=== PATIENT | male | born 1995 | race Caucasian/White ===

== ENCOUNTER 2016-11-28 23:45 | Emergency (ER) | payer OTHER ==
[2016-11-29 00:59] LABS: A/G RATIO 0.8 (0.7-1.9); ALBUMIN 3.7 G/DL (3.5-5.0); ALKALINE PHOSPHATASE 83 U/L (45-117); BUN (BLOOD UREA NITROGEN) 6 MG/DL (6-23); CALCIUM, SERUM 9.3 MG/DL (8.5-10.4); CHLORIDE, SERUM 103 MMOL/L (96-112); CO2 (CARBON DIOXIDE) 23 MMOL/L (24-34); CREATININE 0.97 MG/DL (0.70-1.30); GFR AFRICAN AMERICAN 130 ML/MIN (>=60); GFR NON AFRICAN AMERICAN 112 ML/MIN (>=60); GLOBULIN 4.5 G/DL (2.5-4.1); GLUCOSE, SERUM 116 MG/DL (60-99); SGPT(ALT) 37 U/L (5-65); SODIUM, SERUM 137 MMOL/L (135-148); TOTAL BILIRUBIN 0.6 MG/DL (0-1.2); TOTAL PROTEIN 8.2 G/DL (6.0-8.5)
[2016-11-29 01:00] LABS: POTASSIUM, SERUM 4.7 MMOL/L (3.5-5.3); SGOT(AST) 29 U/L (5-40)
[2016-11-29 01:04] LABS: BASOPHILS 0.1 %; BASOPHILS ABSOLUTE 0.02 10/3/uL (0.0-0.16); EOSINOPHILS 1.4 %; EOSINOPHILS ABSOLUTE 0.21 10/3/uL (0.0-0.53); ER CBC TAT 0 Hrs 15 Mins; HEMATOCRIT 38.5 % (40.0-51.0); HEMOGLOBIN 12.8 g/dL (13.6-17.8); IMMATURE GRANULOCYTES 0.2 %; IMMATURE GRANULOCYTES ABSOLUTE 0.03 10/3/uL (0.0-0.11); LYMPHOCYTES 5.2 %; LYMPHOCYTES ABSOLUTE 0.76 10/3/uL (0.67-4.30); MEAN CORPUS HGB CONC 33.2 g/dL (32.0-36.0); MEAN CORPUSCULAR HEMOGLOB 30.5 pg (26.0-34.0); MEAN CORPUSCULAR VOLUME 91.9 fL (80-100); MEAN PLATELET VOLUME 8.7 fL (9.2-13.0); MONOCYTES ABSOLUTE 0.59 10/3/uL (0.21-1.20); NEUTROPHILS 89.1 %; NEUTROPHILS ABSOLUTE 13.11 10/3/uL (2.02-8.40); PLATELET COUNT 393 10/3/uL (150-400); RBC DISTRIBUTION WIDTH 14.1 % (12.0-16.0); RED CELL COUNT 4.19 10/6/uL (4.7-6.1); WHITE BLOOD CELLS 14.7 10/3/uL (4.5-10.5)
[2016-11-29 01:05] LABS: MANUAL DIFF NO %
[2016-11-29 01:06] LABS: INTERNATIONAL NORMAL RATI 1.1 UNITS (-); PROTIME (NOT ORD) 14.5 SEC (12.0-14.5)
[2016-11-29 01:07] LABS: PARTIAL THROMBO TIME 32.5 SEC (22.5-37.2)
[2016-11-29 01:28] LABS: BAND NEUTROPHILS 1 %; EOSINOPHILS 2 %; EOSINOPHILS ABSOLUTE (CALC) 0.29 10/3/uL (0.0-0.53); ER DIFF TAT 0 Hrs 39 Mins; LYMPHOCYTES 3 %; LYMPHOCYTES ABSOLUTE (CALC) 0.44 10/3/uL (0.67-4.30); MONOCYTES 2 %; MONOCYTES ABSOLUTE (CALC) 0.29 10/3/uL (0.21-1.20); NEUTROPHILS ABSOLUTE (CALC) 13.67 10/3/uL (2.02-8.40); SEGMENTED NEUTROPHIL (0) 92 %; TOTAL NUCLEATED CELLS 100
[2016-11-29 01:29] LABS: PLATELET ESTIMATE ADQ (ADEQUATE); RBC MORPHOLOGY NORM (NORMAL)
[2016-11-29 03:07] LABS: ASCORBIC ACID (UR NOT ORDER) NEG (NEG); BILIRUBIN, URINE NEGATIVE (NEG); ER URINALYSIS TAT 0 Hrs 00 Mins; KETONE, URINE NEGATIVE (NEG); LEUKOCYTE ESTERASE(NOT OR NEG (NEG); NITRITE (URINE) NEG (NEG); WBC (NOT ORDERED) (RFLEX) 0 (0-5)
[2016-11-29 03:21] LABS: LACTATE 1.6 MMOL/L (0.3-2.4)
[2016-11-29 05:50] LABS: INFLUENZA A SCREEN NEGATIVE (NEGATIVE); INFLUENZA B SCREEN NEGATIVE (NEGATIVE)
== END 2016-11-29 07:35 | disposition short-term general hospital (02) ==
LOC: ER 23:45
PROVIDERS: Specialist
DX: A41.9 Sepsis, unspecified organism (principal)
CPT/HCPCS: 71010; 73701-LT; 80053; 81001; 83605; 83690; 85025; 85610; 85730; 87040; 87804; 93005; 96365; 96366; 96367; 96375; 96376; 99285; A9270-GY; J2405; J2543; J3370; Q9967